=== PATIENT | female | born 1935 | race Caucasian/White ===

== ENCOUNTER 2018-01-05 07:53 | Inpatient (IN) ==
[2017-12-29 11:30] LABS: Basophils % 0.5 % (0.0-0.8); Eosinophils % 0.5 % (0.00-10.9); Hematocrit 35.6 VOL% (35.7-47.0); Hemoglobin 11.2 GM/DL (12.0-16.0); Immature Granulocytes % 0.7 %; Immature Granulocytes Absolute 0.03 #; Lymphocytes % 24.8 % (21.3-54.2); Mean Corpuscular HGB Conc 31.5 GM/DL (32-36); Mean Corpuscular Hemoglobin 29 PG (27-34); Mean Platelet Volume 10.1 FL (9.6-12.0); Monocytes # 0.6 10*3/uL (0.11-0.8); Monocytes % 13.1 % (1.7-12.7); Neutrophils # 2.5 10*3/uL (1.4-7.4); Neutrophils % 60.4 % (38.7-73.9); Platelet Count 114 T/CUMM (130-400); Red Blood Count 3.83 MC/CUMM (3.8-5.5); Red Cell Distribution Width 12.5 % (9.3-17.3); White Blood Count 4.2 T/CUMM (4-12)
[2017-12-29 11:51] LABS: Albumin 4.1 G/DL (3.4-5.0); Bilirubin,Total 0.5 MG/DL (0.2-1.0); Calcium 9.6 MG/DL (8.5-10.1); Osmolality,Calculated 287.3 MOS/KG (273-304); Potassium 5.7 MMOL/L (3.5-5.1); Total Protein 8.1 G/DL (6.4-8.3)
[~2018-01-05 07:53] MED LIST: CYCLOPENTOLATE 1% OPH SOLN 2 ML BOTTLE ONE; DIAZEPAM 5 MG TABLET PO STA; FAMOTIDINE 20 MG TABLET PO STA; PHENYLEPHRINE 2.5% OPH SOLN 15 ML BOTTLE ONE; ceFAZolin 1,000 MG in SYRINGE 1 EACH IV ONE
[2018-01-05 08:36] LABS: PT Patient Result 10.7 SECS; Partial Thromboplastin Time 23.8 SECS (0-40)
[2018-01-05] MEDS ORDERED: FAMOTIDINE 20 MG TABLET ONE (08:44)
[2018-01-05] MEDS ORDERED: DIAZEPAM 5 MG TABLET ONE (08:44)
[2018-01-05] MEDS ORDERED: ceFAZolin 1,000 MG VIAL ONE (08:44)
[2018-01-05] MEDS ORDERED: LACTATED RINGERS 1,000 ML IV SCH (09:00)
[2018-01-05] MEDS ORDERED: LIDOCAINE 1% 20 ML VIAL ONE (10:09)
[2018-01-05] MEDS ORDERED: HEPARIN 5,000 UNIT/1 ML VIAL ONE (10:09)
[2018-01-05] MEDS ORDERED: NALOXONE 0.4 MG/ML VIAL IV PRN (12:06)
[2018-01-05] MEDS ORDERED: PROMETHAZINE 25 MG/1 ML VIAL IM PRN (12:06)
[2018-01-05] MEDS ORDERED: HYDROmorphone 2 MG/1 ML VIAL IV PRN ×2 (12:06)
[2018-01-05] MEDS ORDERED: GLUCAGON 1 MG VIAL IM PRN (12:06)
[2018-01-05] MEDS ORDERED: DEXTROSE 50% 25 GM/50 ML VIAL IV PRN (12:06)
[2018-01-05] MEDS ORDERED: ONDANSETRON 4 MG/2 ML VIAL IV PRN (12:06)
[2018-01-05] MEDS ORDERED: oxyCODONE/ACETAMINOPHEN 5-325 MG TABLET PO PRN ×2 (12:06)
[2018-01-05] MEDS ORDERED: LABETALOL 100 MG/20 ML VIAL IV ONE (12:27)
[2018-01-05] MEDS ORDERED: LABETALOL 20 MG/4 ML SYRINGE IV ONE (12:29)
[2018-01-05] MEDS ORDERED: PHENYLEPHRINE DRIP 40 MG/250 ML PREMIX IV SCH (12:30)
[2018-01-05] MEDS ORDERED: NITROPRUSSIDE 100 MG in DEXTROSE 5% 250 ML IV SCH (12:30)
[2018-01-05] MEDS ORDERED: PHENYLEPHRINE 10 MG/1 ML VIAL IV ONE (12:46)
[2018-01-05] MEDS ORDERED: HEPARIN 10,000 UNIT/10 ML VIAL ONE (12:46)
[2018-01-05] MEDS ORDERED: fentaNYL 100 MCG/2 ML VIAL ONE (12:46)
[2018-01-05] MEDS ORDERED: HEPARIN/NACL 0.9% 2 UNITS/ML 500 ML IV ONE (12:46)
[2018-01-05] MEDS ORDERED: DESFLURANE 1 UNIT/15 MINUTE INH ONE (12:46)
[2018-01-05] MEDS ORDERED: ROCURONIUM 100 MG/10 ML VIAL IV ONE (12:47)
[2018-01-05] MEDS ORDERED: NEOSTIGMINE 10 MG/10 ML VIAL ONE (12:47)
[2018-01-05] MEDS ORDERED: SODIUM CHLORIDE 0.9% 250 ML IV ONE (12:47)
[2018-01-05] MEDS ORDERED: ETOMIDATE 40 MG/20 ML VIAL IV ONE (12:47)
[2018-01-05] MEDS ORDERED: PROTAMINE SULFATE 50 MG/5 ML VIAL IV ONE (12:47)
[2018-01-05] MEDS ORDERED: GLYCOPYRROLATE 0.4 MG/2 ML VIAL ONE (12:47)
[2018-01-05] MEDS: LACTATED RINGERS 1,000 ML IV SCH ×2 (13:27→16:09)
[2018-01-05] MEDS: INSULIN REGULAR 100 UNIT/ML SUBCUT SCH (21:39)
[2018-01-06] MEDS: LACTATED RINGERS 1,000 ML IV SCH (04:32)
[2018-01-06] MEDS ORDERED: LISINOPRIL/HCTZ 10-12.5 MG TABLET PO SCH (09:00)
[2018-01-06] MEDS ORDERED: PANTOPRAZOLE 40 MG TABLET PO SCH (09:00)
[2018-01-06] MEDS ORDERED: ASPIRIN CHEW 81 MG TABLET PO SCH (09:00)
[2018-01-06] MEDS ORDERED: CLOPIDOGREL 75 MG TABLET PO SCH (09:00)
[2018-01-06] MEDS: INSULIN REGULAR 100 UNIT/ML SUBCUT SCH ×2 (09:08→12:43)
[2018-01-06 14:00] VITALS: BP 119/62
[2018-01-06] MEDS ORDERED: metFORMIN 850 MG TABLET PO SCH (17:00)
== END 2018-01-06 16:26 | disposition home or self-care (01) | DRG 39 ==
LOC: N.SDSINP 07:53 → N.ICU 13:17
PROVIDERS: ADMIT Surgery; ATTEND Surgery

== ENCOUNTER 2018-02-11 06:45 | Inpatient (IN) ==
[2018-02-04 11:19] LABS: Basophils % 0.3 % (0.0-0.8); Eosinophils % 0.3 % (0.00-10.9); Hematocrit 33.6 VOL% (35.7-47.0); Hemoglobin 10.5 GM/DL (12.0-16.0); Immature Granulocytes % 0.3 %; Immature Granulocytes Absolute 0.01 #; Lymphocytes # 0.8 10*3/uL (1.4-4.0); Lymphocytes % 20.6 % (21.3-54.2); Mean Corpuscular HGB Conc 31.3 GM/DL (32-36); Mean Corpuscular Hemoglobin 29 PG (27-34); Mean Corpuscular Volume 93.6 FL (87-102); Mean Platelet Volume 10.2 FL (9.6-12.0); Monocytes # 0.4 10*3/uL (0.11-0.8); Monocytes % 9.8 % (1.7-12.7); Neutrophils # 2.7 10*3/uL (1.4-7.4); Neutrophils % 68.7 % (38.7-73.9); Platelet Count 108 T/CUMM (130-400); Red Blood Count 3.59 MC/CUMM (3.8-5.5); Red Cell Distribution Width 12.4 % (9.3-17.3); White Blood Count 3.9 T/CUMM (4-12)
[2018-02-04 11:37] LABS: Calcium 9.5 MG/DL (8.5-10.1); Osmolality,Calculated 284.5 MOS/KG (273-304); Potassium 5.1 MMOL/L (3.5-5.1)
[~2018-02-11 06:45] MED LIST changes: -CYCLOPENTOLATE 1% OPH SOLN 2 ML BOTTLE ONE; -DIAZEPAM 5 MG TABLET PO STA; -FAMOTIDINE 20 MG TABLET PO STA; -PHENYLEPHRINE 2.5% OPH SOLN 15 ML BOTTLE ONE; +ceFAZolin 1,000 MG VIAL ONE
[2018-02-11] MEDS: LACTATED RINGERS 1,000 ML IV SCH ×3 (07:13→20:52)
[2018-02-11] MEDS ORDERED: LIDOCAINE 1% 20 ML VIAL ONE (08:11)
[2018-02-11] MEDS ORDERED: HEPARIN 5,000 UNIT/1 ML VIAL ONE (08:11)
[2018-02-11] MEDS ORDERED: ONDANSETRON 4 MG/2 ML VIAL IV PRN (10:14)
[2018-02-11] MEDS ORDERED: oxyCODONE/ACETAMINOPHEN 5-325 MG TABLET PO PRN ×2 (10:14)
[2018-02-11] MEDS ORDERED: PROMETHAZINE 25 MG/1 ML VIAL IM PRN (10:14)
[2018-02-11] MEDS ORDERED: DEXTROSE 50% 25 GM/50 ML SYRINGE IV PRN (10:14)
[2018-02-11] MEDS ORDERED: NALOXONE 0.4 MG/ML VIAL IV PRN (10:14)
[2018-02-11] MEDS ORDERED: GLUCAGON 1 MG VIAL IM PRN (10:14)
[2018-02-11] MEDS ORDERED: HYDROmorphone 2 MG/1 ML VIAL IV PRN ×2 (10:14)
[2018-02-11] MEDS ORDERED: PROPOFOL 200 MG/20 ML VIAL IV ONE (10:41)
[2018-02-11] MEDS ORDERED: fentaNYL 100 MCG/2 ML VIAL ONE (10:41)
[2018-02-11] MEDS ORDERED: DESFLURANE 1 UNIT/15 MINUTE INH ONE (10:41)
[2018-02-11] MEDS ORDERED: PROTAMINE SULFATE 50 MG/5 ML VIAL IV ONE (10:43)
[2018-02-11] MEDS ORDERED: ONDANSETRON 4 MG/2 ML VIAL ONE (10:43)
[2018-02-11] MEDS ORDERED: NEOSTIGMINE 10 MG/10 ML VIAL ONE (10:43)
[2018-02-11] MEDS ORDERED: GLYCOPYRROLATE 0.4 MG/2 ML VIAL ONE (10:43)
[2018-02-11] MEDS ORDERED: LACTATED RINGERS 1,000 ML IV ONE (10:43)
[2018-02-11] MEDS ORDERED: ROCURONIUM 100 MG/10 ML VIAL IV ONE (10:43)
[2018-02-11] MEDS ORDERED: NITROGLYCERIN DRIP 50 MG/250 ML BOTTLE IV ONE (10:43)
[2018-02-11] MEDS ORDERED: SODIUM CHLORIDE 0.9% 1,000 ML IV ONE (10:43)
[2018-02-11] MEDS ORDERED: HEPARIN 10,000 UNIT/10 ML VIAL ONE (10:43)
[2018-02-11] MEDS ORDERED: HEPARIN/NACL 0.9% 2 UNITS/ML 500 ML IV ONE (10:43)
[2018-02-11] MEDS ORDERED: PHENYLEPHRINE DRIP 20 MG/250 ML PREMIX IV ONE (10:43)
[2018-02-11] MEDS ORDERED: ETOMIDATE 40 MG/20 ML VIAL IV ONE (10:43)
[2018-02-11] MEDS ORDERED: ALBUMIN 5% 12.5 GM/250 ML VIAL IV ONE (11:04)
[2018-02-11] MEDS ORDERED: ALBUMIN 5% 12.5 GM in PREMIX 1 EACH IV ONE (11:04)
[2018-02-11] MEDS: PHENYLEPHRINE DRIP 40 MG/250 ML PREMIX IV SCH (11:37)
[2018-02-11] MEDS: NITROPRUSSIDE 100 MG in DEXTROSE 5% 250 ML IV SCH (16:05)
[2018-02-12] MEDS: LACTATED RINGERS 1,000 ML IV SCH ×2 (06:25→08:39)
[2018-02-12] MEDS ORDERED: GLUCAGON 1 MG VIAL IM PRN (08:19)
[2018-02-12] MEDS ORDERED: DEXTROSE 50% 25 GM/50 ML VIAL IV PRN (08:19)
[2018-02-12] MEDS ORDERED: PANTOPRAZOLE 20 MG TABLET PO SCH (09:00)
[2018-02-12] MEDS ORDERED: CLOPIDOGREL 75 MG TABLET PO SCH ×2 (09:00)
[2018-02-12] MEDS ORDERED: ASPIRIN CHEW 81 MG TABLET PO SCH (09:00)
[2018-02-12] MEDS ORDERED: ASPIRIN EC 81 MG TABLET PO SCH (09:00)
[2018-02-12] MEDS ORDERED: INSULIN REGULAR 100 UNIT/ML SUBCUT SCH (11:30)
[2018-02-12] MEDS: NITROPRUSSIDE 100 MG in DEXTROSE 5% 250 ML IV SCH (12:42)
[2018-02-12] MEDS: PHENYLEPHRINE DRIP 40 MG/250 ML PREMIX IV SCH (12:44)
[2018-02-12 14:03] VITALS: BP 146/62
== END 2018-02-12 15:15 | disposition home or self-care (01) | DRG 39 ==
LOC: N.SDSINP 06:45 → N.ICU 09:12 → N.4E 02-12 13:42
PROVIDERS: ADMIT Surgery; ATTEND Surgery